=== PATIENT | male | born 1945 | race Caucasian/White ===

== ENCOUNTER → 2016-03-26 | Outpatient (CLI) | payer OTHER | LOC: FCPNEURO 21:30 | PROVIDERS: ATTEND Psychiatry & Neurology Sleep Medicine | DX: G47.33 Obstructive sleep apnea (adult) (pediatric) (principal); G47.31 Primary central sleep apnea ==

== ENCOUNTER 2018-06-27 19:46 | Emergency (ER) | payer OTHER ==
--- NOTE | 2018-06-27 19:57 | EDPHY ---
H & P Stated Complaint: unable to urinate x 4 hours Time Seen by Provider: 06/27/18 19:57 HPI/ROS: CHIEF COMPLAINT: Urinary retention HISTORY OF PRESENT ILLNESS: The patient presents to the ED with acute urinary retention and severe suprapubic discomfort. The patient has a history of BPH which is been followed clinically. He has no prior history of urinary retention. The patient takes no medications for management of BPH. The patient denies any recent fever, flank pain or vomiting. The patient reportedly was driving in the car today for several hours which precipitated his urinary retention. The patient denies any symptoms of chest pain, shortness of breath or difficulty breathing. REVIEW OF SYSTEMS: A comprehensive 10 point review of systems is otherwise negative aside from elements mentioned in the history of present illness. Source: Patient - Personal History Current Tetanus Diphtheria and Acellular Pertussis (TDAP): Yes - Medical/Surgical History Hx Asthma: No Hx Chronic Respiratory Disease: No Hx Diabetes: No Hx Cardiac Disease: Yes Hx Renal Disease: No Hx Cirrhosis: No Hx Alcoholism: No Hx HIV/AIDS: No Hx Splenectomy or Spleen Trauma: No Other PMH: enlsarged prostate - Social History Smoking Status: Never smoked - Physical Exam Exam: General Appearance: Alert, quite uncomfortable secondary to abdominal pain Eyes: Pupils equal and round no pallor or injection ENT, Mouth: Mucous membranes moist Respiratory: There are no retractions, lungs are clear to auscultation Cardiovascular: Regular rate and rhythm Gastrointestinal: Suprapubic tenderness and distention. Normal bowel sounds, no peritoneal signs Neurological: Grossly normal neurologic exam Skin: Warm and dry, no rashes Constitutional: Initial Vital Signs Temperature (C) 36.6 C 06/27/18 19:49 Heart Rate 60 06/27/18 19:49 Respiratory Rate 16 06/27/18 19:49 Blood Pressure 145/95 H 06/27/18 19:49 O2 Sat (%) 97 06/27/18 19:49 O2 Delivery Mode Room Air Allergies/Adverse Reactions: No Known Allergies Allergy (Unverified 06/27/18 19:52) Home Medications: Medication Instructions Recorded Aspirin 81mg (*) 06/27/18 Tamsulosin HCl [Flomax] 0.4 mg PO DAILY #21 cap 06/27/18 Medical Decision Making ED Course/Re-evaluation: The patient had a bladder scan performed which demonstrated a urinary volume of 950 mL. I ordered a Awan catheter at 8:00 p.m. It was placed without difficulty. The patient's bladder is drained. His urine dipstick is negative. The patient will be discharged home with a prescription for Flomax. He will contact his primary care provider and urologist to arrange follow-up. He is advised to return to the ED for markedly worsening symptoms or other concerns. Differential Diagnosis: Differential diagnosis considered includes acute urinary retention, prostatitis , cystitis Departure - Departure Disposition: Home, Routine, Self-Care Clinical Impression: Acute urinary retention, BPH (benign prostatic hyperplasia) Condition: Good Instructions: Urinary Retention in Men (ED), Enlarged Prostate (BPH) (ED) Additional Instructions: 1. Please contact your urologist on Monday to schedule a follow-up visit. Awan catheter will remain in place until seen by Urology. 2. You have been given a prescription for Flomax. I recommend beginning this each day. 3. Return to the ED for any flank pain, fever or vomiting. Referrals: Aime Carr MD [Primary Care Provider] - As per Instructions Frances Martel MD [Medical Doctor] - As per Instructions
[2018-06-27 19:58] VITALS: BP 145/95
[2018-06-27] MEDS ORDERED: LIDOCAINE 2% JELLY 20 ML (UROJECT) ONE (20:00)
[2018-06-27] MEDS ORDERED: LIDOCAINE 2% JELLY 20 ML (UROJECT) UR ONE (20:22)
== END 2018-06-27 20:40 | disposition home or self-care (01) ==
DX: R33.9 Retention of urine, unspecified (principal); N40.0 Benign prostatic hyperplasia without lower urinary tract symptoms

== ENCOUNTER → 2018-08-03 | Outpatient (CLI) | payer OTHER | LOC: FIMAGING 11:01 ==